=== PATIENT | female | born 1970 | race Caucasian/White ===

== ENCOUNTER 2020-08-05 16:56 | Emergency (ER) | payer BC, OTHER ==
[~2020-08-05] VITALS: Ht 157.5 cm; Wt 86.2 kg
[2020-08-05 17:29] VITALS: BP 176/94
--- NOTE | 2020-08-05 17:40 | NUR ---
Patient ambulated to bed 2. RN evaluating the patient at bedside.
[2020-08-05] MEDS ORDERED: BACITRACIN OINT 500 UNITS/GM PKT TP ONE (18:00)
[2020-08-05] MEDS ORDERED: NACL 0.9% 1,000 ML IV ONE (18:00)
[2020-08-05] MEDS ORDERED: NON ADHERENT DRESSING TP SCH (18:00)
--- NOTE | 2020-08-05 18:18 | NUR ---
1814- EMT AYLEEN APPLIED BACITRACIN AND NON ADHESIVE DRESSING TO PUNCTURE WOUND ON RIGHT HAND POST-SALINE IRRIGATION PER JENNIFER BRANHAM REQUEST
[2020-08-05 18:30] LABS: ANION GAP 13.3 (8-16); CARBON DIOXIDE 27.2 mmol/L (21-32); CREATININE 0.9 mg/dL (0.6-1.3); POTASSIUM 4.5 mmol/L (3.5-5.1)
[2020-08-05] MEDS ORDERED: BACI1PAC6 TP (18:52)
[2020-08-05] MEDS ORDERED: CEPH-588 PO (18:52)
[2020-08-05] MEDS ORDERED: IBUP-2213 PO (18:52)
[2020-08-05 19:19] VITALS: BP 148/74
--- NOTE | 2020-08-07 20:19 | NUR ---
LATE ENTRY- 0.9% NS BOLUS DISCONTINUED AT 191
== END 2020-08-05 19:20 | disposition home or self-care (01) ==
LOC: MED 16:56
DX: S61.432A Puncture wound without foreign body of left hand, initial encounter (principal); E11.9 Type 2 diabetes mellitus without complications; I10 Essential (primary) hypertension; Z79.899 Other long term (current) drug therapy; W26.8XXA Contact with other sharp object(s), not elsewhere classified, initial encounter; Y93.89 Activity, other specified; Y92.89 Other specified places as the place of occurrence of the external cause; Y99.8 Other external cause status
CPT/HCPCS: 36415; 73130; 80048; 90471; 90715; 96360; 99284; J7030